=== PATIENT | female | born 1990 | race African-American/Black ===

== ENCOUNTER 2016-09-04 08:29 | Emergency (ER) | payer MEDICAID ==
[~2016-09-04] VITALS: Ht 154.9 cm; Wt 77.4 kg
[2016-09-04 08:32] VITALS: BP 111/68
[2016-09-04] MEDS ORDERED: SODIUM CHLORIDE 0.9% 1,000ML IVBOLUS ONE (09:00)
[2016-09-04 09:10] LABS: HEMOGLOBIN 13.9 g/dL (11.7-16.4)
[2016-09-04 09:23] LABS: BLOOD UREA NITROGEN 7 mg/dL (7-18)
[2016-09-04] MEDS ORDERED: NS + 40MEQ KCL 1,000 ML IV SCH (10:30)
== END 2016-09-04 10:28 | disposition home or self-care (01) ==
LOC: ED 09:39
DX: O20.0 Threatened abortion (principal); A59.9 Trichomoniasis, unspecified
CPT/HCPCS: 36415; 76801; 80048; 81001; 82040; 84702; 85025; 86850; 86870; 86900; 87086; 99285; J2790

== ENCOUNTER 2017-02-02 13:49 | Outpatient (CLI) | payer MEDICAID ==
[~2017-02-02] VITALS: Ht 154.9 cm; Wt 85.0 kg
[2017-02-02 13:57] VITALS: BP 123/60
== END 2017-02-02 16:08 | disposition home or self-care (01) ==
LOC: LDOP 13:49
PROVIDERS: ATTEND Obstetrics & Gynecology
DX: O26.893 Other specified pregnancy related conditions, third trimester (principal); M54.5 Low back pain; R35.0 Frequency of micturition; R10.2 Pelvic and perineal pain; R63.0 Anorexia; Z3A.34 34 weeks gestation of pregnancy
CPT/HCPCS: 36415; 59025; 81001; 82731; 87086; 99211; G0463

== ENCOUNTER 2017-03-10 04:09 | Inpatient (IN) | payer MEDICAID ==
[~2017-03-10] VITALS: Ht 154.9 cm; Wt 90.0 kg
[2017-03-11] MEDS ORDERED: LACTATED RINGERS 1,000 ML IV SCH ×3 (05:30→09:23)
[2017-03-11] MEDS ORDERED: OXYTOCIN 30U/ 0.9% NaCL 500ML 500 ML IV SCH (05:30)
[2017-03-11] MEDS ORDERED: METOCLOPRAMIDE 5 MG/ML, 2ML IV ONE (05:30)
[2017-03-11] MEDS ORDERED: SODIUM CITRATE/CITRIC ACID 30 ML UDC PO ONE (05:30)
[2017-03-11] MEDS ORDERED: LACTATED RINGERS 1,000 ML IVBOLUS ONE (05:30)
[2017-03-11] MEDS ORDERED: METOCLOPRAMIDE 5 MG/ML, 2ML ONE ×2 (05:33→15:34)
[2017-03-11] MEDS ORDERED: NEWBORN KIT ONE (05:33)
[2017-03-11] MEDS ORDERED: SODIUM CITRATE/CITRIC ACID 30 ML UDC ONE (05:33)
[2017-03-11 06:07] LABS: HEMATOCRIT 42.7 % (34.6-47.8); HEMOGLOBIN 14.5 g/dL (11.7-16.4); WHITE BLOOD COUNT 8.1 x10^3/uL (3.4-10)
[2017-03-11] MEDS ORDERED: PHENYLEPHRINE 10 MG/ML ONE (07:23)
[2017-03-11] MEDS ORDERED: EPHEDRINE 50 MG/ML, 1ML ONE (07:23)
[2017-03-11] MEDS ORDERED: CEFAZOLIN 1,000 MG ONE ×2 (07:23→15:34)
[2017-03-11] MEDS ORDERED: DEXAMETHASONE 4 MG/ML, 1ML ONE ×2 (07:23→15:34)
[2017-03-11] MEDS ORDERED: KETOROLAC 30 MG/1 ML ONE ×2 (07:23→15:34)
[2017-03-11] MEDS ORDERED: OXYTOCIN 10 UNITS/ML, 1ML ONE ×2 (07:23→15:34)
[2017-03-11] MEDS ORDERED: FENTANYL PF 100 MCG/2ML ONE (07:23)
[2017-03-11] MEDS ORDERED: ONDANSETRON 2MG/ML, 2ML ONE ×2 (07:23→15:34)
[2017-03-11] MEDS ORDERED: MEPERIDINE/PF 25MG/0.5ML IVPush PRN (07:30)
[2017-03-11] MEDS ORDERED: ALBUTEROL SULFATE 2.5 MG/3 ML NPPB PRN (07:30)
[2017-03-11] MEDS ORDERED: EPHEDRINE 50 MG/ML, 1ML IVPush PRN (07:30)
[2017-03-11] MEDS ORDERED: PROMETHAZINE 25 MG/ML, 1ML IV PRN (07:30)
[2017-03-11] MEDS ORDERED: HYDROcodone/APAP 7.5-325MG/15ML UDC PO PRN (07:30)
[2017-03-11] MEDS ORDERED: FENTANYL PF 100 MCG/2ML IV PRN (07:30)
[2017-03-11] MEDS ORDERED: ONDANSETRON 2MG/ML, 2ML IVPush PRN (07:30)
[2017-03-11] MEDS ORDERED: OXYcodone 5 MG/5 ML ORAL.SOL UDC PO PRN (07:30)
[2017-03-11] MEDS ORDERED: hydrALAzine 20 MG/ML, 1ML IV PRN (07:30)
[2017-03-11] MEDS ORDERED: LABETALOL 5MG/ML, 20ML IV PRN (07:30)
[2017-03-11] MEDS: OXYTOCIN 30U/ 0.9% NaCL 500ML 500 ML IV SCH ×2 (09:23→19:23)
[2017-03-11] MEDS ORDERED: MISOPROSTOL 200 MCG TABLET PR PRN (09:30)
[2017-03-11] MEDS ORDERED: OXYcodone IR 5MG TABLET PO PRN (09:30)
[2017-03-11] MEDS ORDERED: SIMETHICONE 80 MG CHEW TAB PO PRN (09:30)
[2017-03-11] MEDS ORDERED: morphine SULFATE 10 MG/ML, 1ML IVPush PRN ×2 (09:30)
[2017-03-11] MEDS: ACETAMINOPHEN 325 MG TABLET PO SCH ×3 (09:30→19:19)
[2017-03-11] MEDS ORDERED: CARBOPROST TROMETHAMINE 250 MCG/ML, 1ML IM PRN (09:30)
[2017-03-11] MEDS ORDERED: CALCIUM CARBONATE 500 MG TAB.CHEW PO PRN (09:30)
[2017-03-11] MEDS: IBUPROFEN 600 MG TABLET PO SCH ×3 (09:30→21:30)
[2017-03-11] MEDS ORDERED: METHYLERGONOVINE 0.2 MG/ML IM PRN (09:30)
[2017-03-11] MEDS ORDERED: OXYTOCIN 30U/ 0.9% NaCL 500ML 500 ML ONE (09:48)
[2017-03-11] MEDS: LACTATED RINGERS 1,000 ML IV SCH ×2 (10:36→20:49)
[2017-03-11] MEDS ORDERED: HYDROmorphone 1 MG/ML, 1ML ONE (10:55)
[2017-03-11] MEDS: HYDROmorphone 1 MG/ML, 1ML IV PRN ×2 (11:00→11:06)
[2017-03-11 11:15] VITALS: BP 98/54
[2017-03-11] MEDS: OXYcodone IR 5MG TABLET PO PRN ×3 (12:47→21:29)
[2017-03-11] MEDS: KETOROLAC 30 MG/1 ML IV SCH ×2 (15:17→21:28)
[2017-03-11 16:58] VITALS: BP 101/60
[2017-03-11 17:03] LABS: HEMATOCRIT 40.4 % (34.6-47.8); HEMOGLOBIN 13.6 g/dL (11.7-16.4); WHITE BLOOD COUNT 12.8 x10^3/uL (3.4-10)
[2017-03-11] MEDS: DOCUSATE 100 MG CAPSULE PO PRN (19:19)
[2017-03-11 20:00] VITALS: BP 127/70
[2017-03-11] MEDS ORDERED: RHOGAM FROM BLOOD BANK 1 NOTE EA IM/IV ONE (23:00)
[2017-03-12 00:01] VITALS: BP 110/56
[2017-03-12] MEDS: OXYcodone IR 5MG TABLET PO PRN ×6 (01:39→22:31)
[2017-03-12] MEDS: ACETAMINOPHEN 325 MG TABLET PO SCH ×4 (01:39→19:47)
[2017-03-12] MEDS: KETOROLAC 30 MG/1 ML IV SCH ×2 (03:09→08:30)
[2017-03-12] MEDS: IBUPROFEN 600 MG TABLET PO SCH ×5 (03:30→22:31)
[2017-03-12] MEDS: OXYTOCIN 30U/ 0.9% NaCL 500ML 500 ML IV SCH (03:39)
[2017-03-12 04:11] VITALS: BP 104/53
[2017-03-12] MEDS: LACTATED RINGERS 1,000 ML IV SCH ×2 (05:23→06:24)
[2017-03-12] MEDS ORDERED: PRENATAL VIT/IRON/FA 1 EACH TABLET ONE (07:17)
[2017-03-12 07:20] VITALS: BP 106/61
[2017-03-12] MEDS: DOCUSATE 100 MG CAPSULE PO PRN ×2 (07:21→19:47)
[2017-03-12] MEDS: PRENATAL VIT/IRON/FA 1 EACH TABLET PO SCH (07:21)
[2017-03-12 20:00] VITALS: BP 118/73
[2017-03-13] MEDS: NITROFURANTOIN (MACROBID) 100 MG CAPSULE PO SCH ×2 (00:03→07:47)
[2017-03-13 00:45] LABS: PATH.CAST-FLAG NOT PRESENT; SPERM-FLAG NOT PRESENT; SRC-FLAG NOT PRESENT; XTAL-FLAG NOT PRESENT; YLC-FLAG NOT PRESENT
[2017-03-13] MEDS ORDERED: OXYC-302 PO (01:42)
[2017-03-13] MEDS ORDERED: IBUP-1222 PO (01:42)
[2017-03-13] MEDS ORDERED: DOCU-131 PO (01:44)
[2017-03-13] MEDS: ACETAMINOPHEN 325 MG TABLET PO SCH ×3 (01:56→13:00)
[2017-03-13 07:45] VITALS: BP 102/54
[2017-03-13] MEDS: IBUPROFEN 600 MG TABLET PO SCH (07:46)
[2017-03-13] MEDS: OXYcodone IR 5MG TABLET PO PRN (07:46)
[2017-03-13] MEDS: DOCUSATE 100 MG CAPSULE PO PRN (07:47)
[2017-03-13] MEDS: PRENATAL VIT/IRON/FA 1 EACH TABLET PO SCH (07:47)
[2017-03-13] MEDS ORDERED: NITR100C57 PO (10:13)
== END 2017-03-13 13:05 | disposition home or self-care (01) | DRG 766 ==
LOC: LDIP 03-11 05:30 → 2NW 03-11 05:30 → UNDOADMIN 03-11 05:30
PROVIDERS: ADMIT Obstetrics & Gynecology; ATTEND Obstetrics & Gynecology
PROC: 10D00Z1 Extraction of Products of Conception, Low, Open Approach (ICD-10-PCS; principal; 2017-03-13)
DX: O34.211 Maternal care for low transverse scar from previous cesarean delivery (principal); Z37.0 Single live birth; Z3A.39 39 weeks gestation of pregnancy
CPT/HCPCS: 36415; 81001; 82803; 85025; 85461; 86850; 86900; J0690; J1100; J1170; J1885; J2405; J2790; J3010; J2370; J2590; J2765; J7120

== ENCOUNTER 2020-06-03 15:20 | Emergency (ER) | payer MEDICAID ==
[~2020-06-03] VITALS: Ht 152.4 cm; Wt 86.5 kg
[~2020-06-03 15:20] MED LIST: DOCU-131 PO; IBUP-1222 PO; NITR100C57 PO; OXYC-302 PO
[2020-06-03 15:23] VITALS: BP 114/66
[2020-06-03] MEDS ORDERED: ACETAMINOPHEN 500 MG TABLET PO ONE (15:30)
[2020-06-03] MEDS ORDERED: DEXAMETHASONE 4 MG TABLET PO ONE (15:30)
--- NOTE | 2020-06-03 15:40 | NUR ---
MEDICAL ONCOLOGY PHYSICIAN: PT AMBULATORY TO ROOM FROM LOBBY
[2020-06-03] MEDS ORDERED: DEXAMETHASONE 4 MG TABLET ONE (15:47)
[2020-06-03] MEDS ORDERED: ACETAMINOPHEN 500 MG TABLET ONE (15:47)
== END 2020-06-03 16:43 | disposition home or self-care (01) ==
LOC: ED 16:30
DX: J02.0 Streptococcal pharyngitis (principal); Z87.891 Personal history of nicotine dependence
CPT/HCPCS: 99283